=== PATIENT | male | born 1965 | race Caucasian/White ===

== ENCOUNTER 2018-12-12 22:48 | Observation (INO) ==
--- NOTE | 2018-12-12 23:09 | ERNOTE ---
Medical Problem HPI - Narrative Date of Service: 12/12/18 - General Chief Complaint: Drug Overdose Time Seen by Provider: 12/12/18 22:51 Source: patient, EMS - Immun/Allergies/Home Medications Immunizations: IMMUNIZATION HX Immunizations Up to Date Yes History of Influenza Vaccine No Hx Pneumococcal Vaccination No Allergies/Adverse Reactions: Allergies No Known Allergies Allergy (Verified 12/12/17 22:55) Home Medications: HOME MEDICATIONS pramipexole 0.25 mg tablet 0.25 mg PO HS #90 tab 02/25/18 [Last Taken Unknown] lisinopril 10 mg tablet 10 mg PO DAILY #90 tab 03/29/18 [Last Taken Unknown] - History of Present History Narrative: This is a 53-year-old male who is brought to the emergency room by EMS. The patient reports he has a history of gambling addiction. He went out gambling today. He says that he lost a great deal of money. He is already in significant financial trouble. He says that after gambling and losing he got a bottle of whiskey and drank some of that. He was a recovering alcoholic has not drank in a long time until tonight. He got home and decided to take a handful of 10 mg lisinopril tablets as well as 0.25 Pramipexole. Patient says that this was an impulsive action, but denies being actively suicidal. He says right after he took it he thought "do not know what did I do "and called the ambulance for help. He thinks that he took the medicine around 7:00 however based on times here and when EMS was called I suspect it was closer to 9:00. The patient says that he feels like people are moving and vibrating around the room. He denies having homicidal or suicidal ideation. He denies any other substance abuse. He denies hallucinations. No history of hurting himself. Does not have any guns in the household Review of Systems - Narrative Narrative: Except as listed in the HPI the remainder of the review of systems is negative Medical History (Updated 12/12/18 @ 22:59 by Desiree Apple RN) Hypertension Surgical History: Surgical History (Updated 12/12/18 @ 23:00 by Desiree Apple RN) Closed right ankle fracture R with surgery Tumor Surgical removal of fatty tumor to throat Family History: Family History (Updated 12/12/18 @ 23:00 by Desiree Apple RN) Other No pertinent family history Social History: Preferred Language Latvian Smoking Status Current every day smoker Have you smoked in the past 12 Yes months Abuse History No History of abuse Psych History No pertinent hx Alcohol Use occasionally Drug Use none No Social History Section defined Physical Exam - Physical Exam General Appearance: Present: wd/wn, alert, no apparent distress Head Exam: Present: normal inspection, no evidence of injury Eye Exam: Normal inspection: bilateral, PERRL: bilateral, EOMI: bilateral, Other: bilateral - Patient does have horizontal nystagmus Ears, Nose, Throat: Present: normal ENT inspection, normal pharynx Neck: Present: normal inspection, nontender Respiratory: Present: no respiratory distress, normal breath sounds, chest nontender, lungs clear Cardiovascular/Chest: Present: regular rate, rhythm, no murmur, normal peripheral pulses Gastrointestinal/Abdominal: Present: nontender, nondistended, soft Extremity Exam: Present: normal inspection, non-tender, no edema Neurological Exam: Present: other - Patient is awake and alert. He seems to have some difficulty following through on answering some questions. Specifically I asked him if he was drinking or if he is a consumer of alcohol a nd he said now. EMS reported that he had told them he had drank. When I confronted the patient about it, he says while he does not usually drink but he did tonight. The patient denies auditory or visual hallucinations. Denies suicidal or homicidal ideation. No numbness or tingling. Gait is not tested. Cerebellar is not tested. Skin Exam: Present: normal color, warm/dry Lymphatic Exam: Present: no adenopathy Progress - Results and Orders Patient's Lab Results:: I have reviewed the patient's lab results. - Vital Signs Patient's Vital Signs:: I have reviewed the patient's vital signs. Vital Signs: Vital Signs 12/12/18 22:50 Temperature 36.8 C Pulse Rate 68 Respiratory Rate 16 Blood Pressure 185/85 H O2 Sat by Pulse Oximetry 96 - EKG EKG #1 EKG read: Interp. by me EKG Comments: EKG demonstrates sinus rhythm ventricular rate of 67, normal axis, normal intervals, no ST elevation, no abnormal T waves. - Progress/Reassessment Chief Complaint: Drug Overdose Progress:: Unchanged Progress Note-Subjective: 12/12/18 23:43 Still slightly confused. Plan - Plan Plan: I contacted poison control and went over the suspected substances. They recommend that the patient be watched for at least 12 hours due to a possible delayed effect of lisinopril especially when taken overdose. They said that the effects of the TEST CONSULTANT depression and altered sensorium from the other medicine may persist for 24 to 48 hours. No specific treatment is recommended for that. Monitoring blood pressure and appropriate resuscitation are indicated. Benzos for seizures. The patient is going to need to be observed in the hospital for at least 12 hours and I suspect it is going to be longer than that. At this time I do not see any reason to make the patient an involuntary psychiatric hold. This was an impulsive decision which she immediately regretted. It was not a plan carried out by him to kill himself. I will make the admitting physi george aware of the circumstances and he will be reassessed for suicidal ideation during the admission I discussed with Dr. Gomez, he agrees no psychiatric hold at this time. Patient is still not neurologically normal. Slightly confused. That may be due to the alcohol as well. Departure Clinical Impression: Intentional overdose of drug in tablet form - Departure Disposition: Still a patient Condition: Fair Referrals: Anshul Rich MD [Primary Care Provider] -
[2018-12-12 23:11] LABS: Hematocrit 39.3 % (42.0-52.0); Hemoglobin 13.2 gm/dL (13.5-18.0); Mean Cell Volume 91.8 fl (78-100); Mean Corpuscular Hemoglobin 30.8 pg (27-31); Mean Corpuscular Hgb Conc 33.6 g/dl (32-36); Neutrophil # 5.9 K/mm3 (1.3-6.0); Platelet Count 173 K/mm3 (150-450); Red Blood Count 4.28 M/mm3 (4.7-6.0); Red Cell Distribution Width 13.7 % (11.5-14.0); White Blood Count 9.3 K/mm3 (4.0-10.5)
[2018-12-12 23:25] LABS: ALT 37 U/L (19-67); AST 25 U/L (0-48); Albumin * 3.4 gm/dl (3.4-5.0); Alkaline Phosphatase * 95 U/L (50-170); Anion Gap 13.9 mmol/L (6.8-13.8); Bilirubin, Total 0.6 mg/dL (0.0-1.1); Blood Urea Nitrogen 15 mg/dL (6-23); Ca. Corrected For Albumin 8.8 mg/dL (8.4-10.2); Calcium * 8.6 mg/dL (7.9-10.9); Carbon Dioxide 24.5 mmol/L (24-32.6); Chloride 105 mmol/L (97-106); Glucose * 93 mg/dL (70-110); Potassium 3.4 mmol/L (3.4-4.6); Salicylate Less than 2.8 mg/dL (2.8-20.0); Sodium 140 mmol/L (132-142); Total Protein 6.3 gm/dL (6.2-8.2)
[2018-12-13 03:47] LABS: Cocaine Ur Negative (NEGATIVE); Urine Barbiturate Negative (NEGATIVE); Urine Benzodiazepines Negative (NEGATIVE); Urine Opiates Negative (NEGATIVE); Urine PCP Negative (NEGATIVE); Urine THC Negative (NEGATIVE)
--- NOTE | 2018-12-13 07:08 | HP ---
Chief Complaint - Chief Complaint Date of Service: 12/13/18 Time of Service: 07:07 Chief Complaint: depressed, wanted a way out History of Present Illness: Patient is a 53-year-old male with past medical history significant mainly for hypertension, has been feeling down and depressed for quite some time. Is never been treated for depression. States no family history of depression. He does state that he has been on motivated to do much of anything including pain bills. He does have a gambling problem and has sought counseling in rehab for this in the past, but despite this he still continues to sanchez and get further into debt. He states last night things came to a head, he panicked, felt so overwhelmed that he just wanted to wait out. Overall he says he does not wish to , he just does not want to feel the way he does. He denies any manic type symptoms such as staying up for days on end, but does state that he feels very reckless times with his spending things that he does. He definitely feels very down and depressed, unmotivated and anxious. He took his lisinopril and Primaxin because that is what he had on hand, but he is glad that it did not take his life he does say he wants to live. He denies any other symptoms this morning. He denies any drugs of abuse or excessive alcohol consumption. Fact he states he rarely drinks but did so last night. He was admitted for observation due to the medications he took last night with the intent of hurting himself. 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 Smoking Status Current every day smoker Have you smoked in the past 12 Yes months Abuse History No History of abuse Psych History No pertinent hx Alcohol Use occasionally Drug Use none No Social History Section defined Review Of Systems (GEN) - Review of Systems Generalized/Overall Review: Present: No Symptoms Reported EENTM: Present: No Symptoms Reported Respiratory: Present: No Symptoms Reported Cardiac: Present: No Symptoms Reported Abdominal: Present: Abdominal Pain Genitourinary: Present: No Symptoms Reported Musculoskeletal: Present: No Symptoms Reported Neurological: Present: Anxiety, Depressed, Emotional Problems Skin: Present: No Symptoms Reported Endocrine: Present: No Symptoms Reported Immunizations: IMMUNIZATION HX Immunizations Up to Date Yes History of Influenza Vaccine No Hx Pneumococcal Vaccination No Allergies/Adverse Reactions: Allergies Allergy/AdvReac Type Severity Reaction Status Date / Time No Known Allergies Allergy Verified 12/12/17 22:55 Home Medications: HOME MEDICATIONS pramipexole 0.25 mg tablet 0.25 mg PO HS #90 tab 02/25/18 [Last Taken Unknown] lisinopril 10 mg tablet 10 mg PO DAILY #90 tab 03/29/18 [Last Taken Unknown] Exam - Exam Vital Signs: Vital Signs - Last Taken Temp 36.6 C 12/13/18 00:34 Pulse 65 12/13/18 06:22 Resp 14 12/13/18 05:30 BP 130/69 12/13/18 05:30 Pulse Ox 95 12/13/18 05:30 Constitutional: Present: Alert, Oriented x3, Cooperative, Other - depressed, Overweight ENT Exam: Present: hearing grossly normal Eye Exam: bilateral eye: normal inspection, PERRL, EOMI, other - sclera is injected Neck: Present: supple Respiratory: Present: lungs clear, normal breath sounds, no respiratory distress, no accessory muscle use Cardiovascular/Chest: Present: regular rate, rhythm, no murmur Abdomen: Present: Normal bowel sounds, soft, nontender, nondistended, no rebound tenderness, no hepatospenomegaly Extremity: Present: no pedal edema, no calf tenderness Skin Exam: Present: normal color Neurologic: Present: police detective II-XII nml as tested, oriented x 3, depressed affect Appearance: Present: appropriate appearance, appropriate insight Eye contact: Present: cooperative, good eye contact, normal speech Thoughts: Present: normal thought pattern, no apparent hallucination Diagnostic Studies: Abnormal Lab Results 12/12/18 12/12/18 Range/Units 23:07 23:07 RBC 4.28 L (4.7-6.0) M/mm3 Hgb 13.2 L (13.5-18.0) gm/dL Hct 39.3 L (42.0-52.0) % Anion Gap 13.9 H (6.8-13.8) mmol/L Salicylates Less than 2.8 L (2.8-20.0) mg/dL Acetaminophen Less than 0.2 L (10.0-30.0) mcg/mL Ethyl Alcohol 47.0 H (0.0-10.0) mg/dL Laboratory Results WBC 9.3 K/mm3 (4.0-10.5) 12/12/18 23:07 RBC 4.28 M/mm3 (4.7-6.0) L 12/12/18 23:07 Hgb 13.2 gm/dL (13.5-18.0) L 12/12/18 23:07 Hct 39.3 % (42.0-52.0) L 12/12/18 23:07 MCV 91.8 fl (78-100) 12/12/18 23:07 MCH 30.8 pg (27-31) 12/12/18 23: MCHC 33.6 g/dl (32-36) 12/12/18 23:07 RDW 13.7 % (11.5-14.0) 12/12/18 23:07 Plt Count 173 K/mm3 (150-450) 12/12/18 23:07 MPV 11.0 fl (8-11.3) 12/12/18 23:07 Immature Gran % (Auto) 0.30 % (0.001-0.429) 12/12/18 23:07 Immature Gran # (Auto) 0.03 K/mm3 (0.000-0.0310) 12/12/18 23:07 64.0 % (42-75.0) 12/12/18 23:07 24.4 % (20-51) 12/12/18 23:07 7.7 % (0.0-9) 12/12/18 23:07 3.0 % (0.0-3.0) 12/12/18 23:07 0.6 % (0.0-1.0) 12/12/18 23:07 Nucleated RBC % 0.0 k/mm3 (0-1) 12/12/18 23:07 5.9 K/mm3 (1.3-6.0) 12/12/18 23:07 2.26 k/mm3 (1.5-3.5) 12/12/18 23:07 0.7 k/mm3 (0.0-1.0) 12/12/18 23:07 0.3 k/mm3 (0.0-0.7) 12/12/18 23:07 Absolute Basophils 0.1 k/mm3 (0.0-0.1) 12/12/18 23:07 Sodium 140 mmol/L (132-142) 12/12/18 23:07 140 mmol/L (130-142) 12/12/18 23:07 Potassium 3.4 mmol/L (3.4-4.6) 12/12/18 23:07 Chloride 105 mmol/L (97-106) 12/12/18 23:07 Carbon Dioxide 24.5 mmol/L (24-32.6) 12/12/18 23:07 13.9 mmol/L (6.8-13.8) H 12/12/18 23:07 BUN 15 mg/dL (6-23) 12/12/18 23:07 1.00 mg/dL (0.4-1.4) 12/12/18 23:07 Est GFR (Non-Af Amer) 82 mL/min (60-130) 12/12/18 23:07 15.0 (9.0-21.6) 12/12/18 23:07 93 mg/dL (70-110) 12/12/18 23:07 Calcium 8.6 mg/dL (7.9-10.9) 12/12/18 23:07 Calcium Adj for Albumin 8.8 mg/dL (8.4-10.2) 12/12/18 23:07 0.6 mg/dL (0.0-1.1) 12/12/18 23:07 AST 25 U/L (0-48) 12/12/18 23:07 ALT 37 U/L (19-67) 12/12/18 23:07 95 U/L (50-170) 12/12/18 23:07 Less than 0.017 ng/mL (0.00-0.10) 12/12/18 23:07 6.3 gm/dL (6.2-8.2) 12/12/18 23:07 3.4 gm/dl (3.4-5.0) 12/12/18 23:07 Salicylates Less than 2.8 mg/dL (2.8-20.0) L 12/12/18 23:07 Negative (NEGATIVE) 12/13/18 03:12 Acetaminophen Less than 0.2 mcg/mL (10.0-30.0) L 12/12/18 23:07 Negative (NEGATIVE) 12/13/18 03:12 Ur Phencyclidine Scrn Negative (NEGATIVE) 12/13/18 03:12 Urine Amphetamine Negative (NEGATIVE) 12/13/18 03:12 U Benzodiazepines Scrn Negative (NEGATIVE) 12/13/18 03:12 Negative (NEGATIVE) 12/13/18 03:12 Negative (NEGATIVE) 12/13/18 03:12 Ethyl Alcohol 47.0 mg/dL (0.0-10.0) H 12/12/18 23:07 Assessment/Plan - Assessment/Plan (1) Intentional overdose of drug in tablet form Assessment: pt. states he wants help, he doesn't want to . he thought he did last night after feeling so down for quite some time, but realized after taking the pills he wants to live. He wants help. Problem: Acute (2) Depression Assessment: with labs being ok, will start him on fluoxetine as it will be better from a compliance standpoint due to its half life. we may need to do a mood stabilizer as well, be will start the fluoxetine first. There is some risk with any medication, but he truly is wanting help and I believe he will seek out help should things worsen, rather than taking pills again. Problem: Chronic Qualifiers: Depression Type: major depressive disorder Major depression recurrence: recurrent Active/Remission status: currently active Psychotic features: without psychotic features (3) Discharge planning issues Assessment: anticipate him being discharged home later today with close outpt. f/u. Problem: Acute
[2018-12-13 07:39] LABS: ALT 34 U/L (19-67); AST 22 U/L (0-48); Albumin * 3.4 gm/dl (3.4-5.0); Alkaline Phosphatase * 101 U/L (50-170); Anion Gap 11.6 mmol/L (6.8-13.8); BUN/Creatinine Ratio 12.9 (9.0-21.6); Bilirubin, Total 0.5 mg/dL (0.0-1.1); Blood Urea Nitrogen 13 mg/dL (6-23); Ca. Corrected For Albumin 8.8 mg/dL (8.4-10.2); Calcium * 8.6 mg/dL (7.9-10.9); Carbon Dioxide 24.6 mmol/L (24-32.6); Chloride 106 mmol/L (97-106); Glucose * 102 mg/dL (70-110); Potassium 4.2 mmol/L (3.4-4.6); Sodium 138 mmol/L (132-142); Total Protein 6.1 gm/dL (6.2-8.2)
[2018-12-13] MEDS ORDERED: NORMAL SALINE 1,000 ML IV ONE (09:02)
[2018-12-13] MEDS ORDERED: FLUoxetine HCL 20 MG CAPSULE PO SCH (09:15)
--- NOTE | 2018-12-13 12:50 | DS ---
(1) Intentional overdose of drug in tablet form Problem: Acute (2) Depression Problem: Chronic Qualifiers: Depression Type: major depressive disorder Major depression recurrence: recurrent Active/Remission status: currently active Psychotic features: without psychotic features (3) Discharge planning issues Problem: Acute Description of Stay: Pt. admitted because he drank and took several of his lisinopril and mirapex as he was feeling very down and just wanted the "pain" to go away. He states he does not want to , but needs help. We discussed what he needs to do in terms of medication, not drinking or gambling and to seek support groups/counselling. I also d/w him going to rastafarian again, seeking God for help. He was given fluoxetine 20mg po x 1 and a new Rx will be sent in to [facility] for his fluoxetine. He did not have any money so I did give him some to cover his Rx. He is to [facility] in 1 week and he promised to call our office if he is getting worse. there is some concern for possible bipolar, but will assess this possibility more in 1 week. Procedures Performed: none Results and Findings: Lab Pending Results 12/12/18 23:07: WBC 9.3, RBC 4.28 L, Hgb 13.2 L, Hct 39.3 L, MCV 91.8, MCH 30.8, MCHC 33.6, RDW 13.7, Plt Count 173, MPV 11.0, Immature Gran % (Auto) 0.30, Immature Gran # (Auto) 0.03, Neutrophils % 64.0, Lymphocytes % 24.4, Monocytes % 7.7, Eosinophils % 3.0, Basophils % 0.6, Nucleated RBC % 0.0, Neutrophils # 5.9, Lymphocytes # 2.26, Monocytes # 0.7, Eosinophils # 0.3, Absolute Basophils 0.1 12/12/18 23:07: Sodium 140, Plasma Sodium 140, Potassium 3.4, Chloride 105, Carbon Dioxide 24.5, Anion Gap 13.9 H, BUN 15, Creatinine 1.00, Est GFR (Non-Af Amer) 82, BUN/Creatinine Ratio 15.0, Random Glucose 93, Calcium 8.6, Calcium Adj for Albumin 8.8, Total Bilirubin 0.6, AST 25, ALT 37, Alkaline Phosphatase 95, Total Protein 6.3, Albumin 3.4, Salicylates Less than 2.8 L, Acetaminophen Less than 0.2 L, Ethyl Alcohol 47.0 H 12/12/18 23:07: Troponin I Less than 0.017 12/13/18 03:12: Urine Opiates Screen Negative, Barbiturate Screen Negative, Ur Phencyclidine Scrn Negative, Urine Amphetamine Negative, U Benzodiazepines Scrn Negative, Urine Cocaine Screen Negative, Urine Marijuana (THC) Negative 12/13/18 07:17: Sodium 138, Plasma Sodium 138, Potassium 4.2 D, Chloride 106, Carbon Dioxide 24.6, Anion Gap 11.6, BUN 13, Creatinine 1.01, Est GFR (Non-Af Amer) 82, BUN/Creatinine Ratio 12.9, Random Glucose 102, Calcium 8.6, Calcium Adj for Albumin 8.8, Total Bilirubin 0.5, AST 22, ALT 34, Alkaline Phosphatase 101, Total Protein 6.1 L, Albumin 3.4, Ethyl Alcohol Less than 3.0 Discharge Location: Home Disposition: Home self-care Condition: Fair Discharge Activity: Activity as tolerated Discharge Diet: General/regular food Referrals: Anshul Rich MD [Primary Care Provider] - One Week Prescriptions (Any new or edited meds): FLUoxetine HCL [Prozac] 20 mg PO DAILY #30 cap Complete Home Medications List: Complete Home Medication List: pramipexole 0.25 mg tablet 0.25 mg PO HS #90 tab 02/25/18 lisinopril 10 mg tablet 10 mg PO DAILY #90 tab 03/29/18 FLUoxetine HCL [Prozac] 20 mg PO DAILY #30 cap 12/13/18
[2018-12-13 13:16] VITALS: BP 162/88
[2018-12-13] MEDS ORDERED: PRAMIPEXOLE DI-HCL 0.5 MG TABLET PO SCH (21:00)
[2018-12-14] MEDS ORDERED: LISINOPRIL 10 MG TABLET PO SCH (09:00)
== END 2018-12-13 13:33 | disposition home or self-care (01) ==
LOC: SCU 22:48 → ER 22:48 → MS 23:50 → INTOOBSV 23:50 → SCU 12-13 00:25
PROVIDERS: ADMIT Family Medicine; ATTEND Family Medicine
DX: T50.902A Poisoning by unspecified drugs, medicaments and biological substances, intentional self-harm, initial encounter; F32.9 Major depressive disorder, single episode, unspecified
CPT/HCPCS: 36415; 80053; 80307; 80320; 84484; 85025; 93005; 96365; 99284; G0378; G0480; G0481